=== PATIENT | male | born 1935 | race Caucasian/White ===

== ENCOUNTER → 2017-03-06 13:21 | Outpatient (CLI) | payer MEDICARE, OTHER | END | disposition home or self-care (01) | LOC: D.RT 13:00 | DX: J84.10 Pulmonary fibrosis, unspecified (principal) ==

== ENCOUNTER → 2019-04-04 11:21 | Outpatient (CLI) | payer MEDICARE, OTHER ==
[~2019-04-04 11:21] MED LIST: ASPIRIN325 MG PO; BROVANA15 MCG/2 M INH; COREG 3.1253.125 MG PO; FLOMAX0.4 MG PO; LEVAQUIN750 MG PO; MEDROL DOSE PACK4 MG PO; OMNICEF300 MG PO; PLAVIX75 MG PO; PROVENTIL/2.5 MG/3 M INH; REVATIO20 MG PO; ZETIA10 MG PO
[2019-04-07 10:11] VITALS: BMI 31.9
== END | disposition home or self-care (01) ==
LOC: D.RAD 11:21
PROVIDERS: ATTEND Family Medicine
DX: J18.9 Pneumonia, unspecified organism (principal)

== ENCOUNTER 2019-04-05 09:01 | Inpatient (IN) | payer MEDICARE, OTHER ==
[~2019-04-05] VITALS: Ht 172.7 cm; Wt 102.5 kg
--- NOTE | 2019-04-05 09:46 | NUR ---
PATIENT HAS JUST ARRIVED TO THE FLOOR VIA WHEEL CHAIR. HE IS HERE WITH A FAMILY FRIEND. HE WAS A DIRECT ADMIT FROM DR LOPEZ OFFICE. HE HAS A HISTORY OF FARMERS DISEASE, COPD. HE IS ON 6 LITERS O2 AND HE IS ALERT AND ORIENTED.
[2019-04-05 10:29] LABS: BASOPHILS 0.4 % (0-2); EOSINOPHILS 9.4 % (0-7); HEMATOCRIT 33.6 % (42.0-54.0); IMMATURE GRANULOCYTES 0.4 % (0-5); MCH 30.3 pg (26.0-34.0); MCHC 32.7 g/dL (31.0-37.0); MCV 92.6 fL (80.0-100.0); MEAN PLATELET VOLUME 9.8 fL (7.4-10.4); MONOCYTES 4.8 % (2-11); PLATELET COUNT 145 10x3/uL (130-400); RBC 3.63 10x6/uL (4.20-6.10); RDW 14.2 % (11.5-14.5); WBC 4.8 10x3/uL (4.8-10.8)
[2019-04-05 10:56] VITALS: BP 91/44; BMI 32.0
[2019-04-05 11:06] LABS: ALBUMIN 2.8 g/dL (3.4-5.0); ANION GAP 12.4 mmol/L (8-16); BILIRUBIN - TOTAL 0.37 mg/dL (0.2-1.3); CALCIUM 8.3 mg/dL (8.5-10.1); CARBON DIOXIDE 26.3 mmol/L (21.0-32.0); CREATININE - SERUM 1.7 mg/dL (0.6-1.3); POTASSIUM - SERUM 4.7 mmol/L (3.5-5.1)
--- NOTE | 2019-04-05 11:48 | NUR ---
NEW IV STARTED IN LEFT HAND. 22G ONE STICK. PATIENT TOLERATED.
[2019-04-05 12:30] VITALS: BP 95/48
[2019-04-05 14:46] VITALS: BMI 31.9
[2019-04-05 16:38] VITALS: BP 114/72
[2019-04-05 17:02] LABS: APPEARANCE CLEAR (CLEAR); BILIRUBIN NEGATIVE (NEGATIVE); COLOR YELLOW (YELLOW); GLUCOSE NEGATIVE (NEGATIVE); KETONE NEGATIVE (NEGATIVE); NITRITE NEGATIVE (NEGATIVE); PROTEIN NEGATIVE (NEGATIVE); SPECIFIC GRAVITY 1.015 (1.005-1.020); UROBILINOGEN NORMAL (NORMAL)
[2019-04-05] MEDS ORDERED: ZETIA10 MG PO (17:03)
[2019-04-05] MEDS ORDERED: FLOMAX0.4 MG PO (17:04)
[2019-04-05] MEDS ORDERED: ASPIRIN325 MG PO (17:04)
[2019-04-05] MEDS ORDERED: REVATIO20 MG PO (17:05)
[2019-04-05] MEDS ORDERED: COREG 3.1253.125 MG PO (17:06)
[2019-04-05] MEDS ORDERED: PLAVIX75 MG PO (17:06)
[2019-04-05] MEDS ORDERED: PROVENTIL/2.5 MG/3 M INH (17:07)
--- NOTE | 2019-04-05 19:30 | NUR ---
EVENING ROUNDS MADE. PT BREATHING LABORED AND IRREGULAR, PT NOTED TO HAVE TRILOGY OFF. PT O2 SAT 70%. ASSISTED PT TO PUT TRILOGY BACK ON. 02 SAT IMMEDIATELY JAY TO 90% WHICH PT STATES IS HIS NORMAL AT HOME. PT ANXIOUS ABOUT HIS SETTING ON HIS TRILOGY MACHINE. ASSURED PT THAT THE SETTINGS ARE THE SAME HIS HOME SETTINGS. REASSURED PT THAT HE HAS O2 VIA NC BESIDE HIM AT ALL TIMES IF NEEDED. NO FURTHER CONCERNS AT THIS TIME. PT HAS OWN PULSE OX AT BEDSIDE. BED LOWERED AND LOCKED. CL IN REACH. WILL CTM.
[2019-04-05 20:00] VITALS: BP 112/73
--- NOTE | 2019-04-05 20:51 | NUR ---
VITALS STABLE. PT TOOK MEDS WITHOUT DIFFICULTY. DENIES PAIN AT THIS TIME. ASSISTED WITH APPLYING TRILOGY. NO FURTHER CONCERNS AT THIS TIME. BED LOWERED AND LOCK. CL IN REACH. WILL CTM.
[2019-04-06] VITALS: BP 114/63
[2019-04-06 04:00] VITALS: BP 100/45
--- NOTE | 2019-04-06 04:37 | NUR ---
I have reviewed this patient and I concur with the Shift Assessment completed by the Licensed Practical Nurse today this shift.
[2019-04-06 08:34] VITALS: BP 117/63
--- NOTE | 2019-04-06 08:38 | NUR ---
PATIENT IS SITTING UP IN BED, AT BEDSIDE. HE IS EATTING BREAKFAST AND DENIES ANY NEEDS AT THIS TIME.
[2019-04-06 12:59] VITALS: BP 108/60
[2019-04-06 13:24] LABS: BASOPHILS 0.2 % (0-2); EOSINOPHILS 5.3 % (0-7); HEMATOCRIT 32.2 % (42.0-54.0); HEMOGLOBIN 10.4 g/dL (13.5-17.5); IMMATURE GRANULOCYTES 0.5 % (0-5); LYMPHOCYTES 7.7 % (15-50); MCH 30.1 pg (26.0-34.0); MCHC 32.3 g/dL (31.0-37.0); MCV 93.1 fL (80.0-100.0); MEAN PLATELET VOLUME 9.6 fL (7.4-10.4); MONOCYTES 6.7 % (2-11); NEUTROPHILS 79.6 % (40-80); PLATELET COUNT 135 10x3/uL (130-400); RBC 3.46 10x6/uL (4.20-6.10); RDW 14.3 % (11.5-14.5); WBC 4.2 10x3/uL (4.8-10.8)
[2019-04-06 13:50] LABS: ALBUMIN 2.6 g/dL (3.4-5.0); ANION GAP 13.3 mmol/L (8-16); BILIRUBIN - TOTAL 0.38 mg/dL (0.2-1.3); CALCIUM 7.5 mg/dL (8.5-10.1); CREATININE - SERUM 1.9 mg/dL (0.6-1.3); POTASSIUM - SERUM 4.3 mmol/L (3.5-5.1)
[2019-04-06 17:53] VITALS: BP 116/64
[2019-04-06 20:00] VITALS: BP 135/69
--- NOTE | 2019-04-06 20:13 | NUR ---
RECEIVED REPORT, WILL ASSUME CARE OF PT, DENIES ANY NEEDS, BED IS LOW, SRX2, CALL LIGHT IN REACH, WILL CONTINUE PLAN OF CARE
[2019-04-07] VITALS: BP 104/51
[2019-04-07 04:00] VITALS: BP 106/55
--- NOTE | 2019-04-07 04:59 | NUR ---
I have reviewed this patient and I concur with the Shift Assessment completed by the Licensed Practical Nurse today this shift.
[2019-04-07 06:11] LABS: BASOPHILS 0.3 % (0-2); EOSINOPHILS 0 % (0-7); HEMATOCRIT 35.2 % (42.0-54.0); HEMOGLOBIN 11.4 g/dL (13.5-17.5); IMMATURE GRANULOCYTES 0.3 % (0-5); LYMPHOCYTES 8.5 % (15-50); MCH 29.8 pg (26.0-34.0); MCHC 32.4 g/dL (31.0-37.0); MCV 92.1 fL (80.0-100.0); MEAN PLATELET VOLUME 9.7 fL (7.4-10.4); MONOCYTES 2.2 % (2-11); NEUTROPHILS 88.7 % (40-80); PLATELET COUNT 132 10x3/uL (130-400); RBC 3.82 10x6/uL (4.20-6.10); RDW 14.1 % (11.5-14.5); WBC 3.2 10x3/uL (4.8-10.8)
[2019-04-07 06:29] LABS: ALBUMIN 2.6 g/dL (3.4-5.0); ANION GAP 13.2 mmol/L (8-16); BILIRUBIN - TOTAL 0.33 mg/dL (0.2-1.3); CARBON DIOXIDE 24.6 mmol/L (21.0-32.0); CREATININE - SERUM 1.5 mg/dL (0.6-1.3); POTASSIUM - SERUM 4.8 mmol/L (3.5-5.1); PROTEIN - SERUM 6.8 g/dL (6.4-8.2)
--- NOTE | 2019-04-07 07:34 | NUR ---
INITIAL ROUNDING ON THE PATIENT, HE IS AWAKE AND TALKING ON THE PHONE. WHITE BOARD UPDATED, CALL LIGHT IN REACH.
[2019-04-07 08:30] VITALS: BP 110/56
[2019-04-07 10:11] VITALS: Ht 172.7 cm; Wt 102.5 kg
--- NOTE | 2019-04-07 10:58 | NUR ---
THE PATIENT AND THE SPOUSE ARE CONCERNED ABOUT THE PATIENT NOT GETTING HIS HOME MEDICATIONS SINCE HIS LAST DOSE MONDAY AM BEFORE ARRIVAL HERE. THE MED LIST IS CURRENT AND READY FOR REVIEW
[2019-04-07 11:42] VITALS: BP 99/51
--- NOTE | 2019-04-07 14:15 | NUR ---
ALERT AND ORIENTED X4. SITTING UP IN BED TALKING ON PHONE. 20G NEEDED FOR CT. SITE 20G IV LT FA SUCCESSFUL X1 ATTEMPT.
--- NOTE | 2019-04-07 14:15 | NUR ---
A SECOND IV STARTED IN THE LEFT FOREARM, 20 G, [address] SCAN THAT WAS ORDERED STAT
[2019-04-07 18:49] VITALS: BP 132/75; BP 150/71
--- NOTE | 2019-04-07 19:38 | NUR ---
RECEIVED RE[PORT, WILL ASSUME CARE OF PT, PT TALKING ON PHONE, DENIES ANY NEEDS AT THIS TIME, BED IS LOW, SRX2, CALL LIGHT IN REACH, WILL CONTINUE PLAN OF CARE
[2019-04-07 20:00] VITALS: BP 135/61
[2019-04-08 00:18] VITALS: BP 109/54
[2019-04-08 04:00] VITALS: BP 124/65
--- NOTE | 2019-04-08 04:35 | NUR ---
I have reviewed this patient and I concur with the Shift Assessment completed by the Licensed Practical Nurse today this shift.
--- NOTE | 2019-04-08 04:36 | NUR ---
I have reviewed this patient and I concur with the Shift Assessment completed by the Licensed Practical Nurse today this shift.
[2019-04-08 05:32] LABS: BASOPHILS 0 % (0-2); EOSINOPHILS 0 % (0-7); HEMATOCRIT 30.8 % (42.0-54.0); HEMOGLOBIN 10.2 g/dL (13.5-17.5); IMMATURE GRANULOCYTES 0.1 % (0-5); LYMPHOCYTES 5.3 % (15-50); MCHC 33.1 g/dL (31.0-37.0); MCV 90.6 fL (80.0-100.0); MEAN PLATELET VOLUME 9.8 fL (7.4-10.4); MONOCYTES 4.8 % (2-11); NEUTROPHILS 89.8 % (40-80); RDW 14.1 % (11.5-14.5)
[2019-04-08 05:43] LABS: PLATELET COUNT 159 10x3/uL (130-400); WBC 8.5 10x3/uL (4.8-10.8)
[2019-04-08 06:06] LABS: ALBUMIN 2.5 g/dL (3.4-5.0); ANION GAP 12.4 mmol/L (8-16); BILIRUBIN - TOTAL 0.29 mg/dL (0.2-1.3); CALCIUM 7.9 mg/dL (8.5-10.1); CARBON DIOXIDE 24.9 mmol/L (21.0-32.0); CREATININE - SERUM 1.5 mg/dL (0.6-1.3); MAGNESIUM - SERUM 2.2 mg/dL (1.8-2.4); PHOSPHOROUS 3.1 mg/dL (2.5-4.9); POTASSIUM - SERUM 4.3 mmol/L (3.5-5.1); PROTEIN - SERUM 6.3 g/dL (6.4-8.2)
--- NOTE | 2019-04-08 07:51 | NUR ---
REPORT RECEIVED. WILL CONTINUE WITH POC. PT CURRENTLY LYING SEMI FOWLERS. CALL LIGHT W/I REACH. PT IS AAO AND UP WITH ASSIST. RR EVEN AND UNLABORED ON 8L HIGH FLOW NC. L.FOR PIV HAS NS INFUSING @75ML/HR. NO S/S OF DISTRESS NOTED. PT DENIES ANY NEEDS. WILL CTM.
[2019-04-08 08:28] VITALS: BP 127/61
[2019-04-08 12:58] VITALS: BP 111/60
--- NOTE | 2019-04-08 13:47 | NUR ---
Nutrition follow-up: Diet: Low sodium PO intake ~60% average of last 3 meals Labs reviewed Wt: 212# Will continue to provide food choices and honor food preferences. RDN following.
--- NOTE | 2019-04-08 15:51 | NUR ---
I have reviewed this patient and I concur with the Shift Assessment completed by the Licensed Practical Nurse today this shift.
[2019-04-08 17:28] VITALS: BP 108/54
[2019-04-08 17:39] LABS: BASOPHILS 0.1 % (0-2); EOSINOPHILS 0 % (0-7); HEMATOCRIT 34.4 % (42.0-54.0); HEMOGLOBIN 11.3 g/dL (13.5-17.5); IMMATURE GRANULOCYTES 0.7 % (0-5); LYMPHOCYTES 3.3 % (15-50); MCH 30.3 pg (26.0-34.0); MCHC 32.8 g/dL (31.0-37.0); MCV 92.2 fL (80.0-100.0); MEAN PLATELET VOLUME 9.5 fL (7.4-10.4); MONOCYTES 2.9 % (2-11); RBC 3.73 10x6/uL (4.20-6.10); RDW 14.2 % (11.5-14.5)
[2019-04-08 17:43] LABS: INR 1.2 (0.85-1.17); PLATELET COUNT 194 10x3/uL (130-400); PROTIME 14.7 SECONDS (11.6-15.0)
[2019-04-08 17:52] LABS: ANION GAP 15.1 mmol/L (8-16); BILIRUBIN - TOTAL 0.3 mg/dL (0.2-1.3); CARBON DIOXIDE 24.8 mmol/L (21.0-32.0); CREATININE - SERUM 1.7 mg/dL (0.6-1.3); POTASSIUM - SERUM 3.9 mmol/L (3.5-5.1); PROTEIN - SERUM 7.4 g/dL (6.4-8.2)
--- NOTE | 2019-04-08 19:45 | NUR ---
EVENING ROUNDS COMPLETED. VSS, AAOX4, NO S/S OF DISTRESS. TRILOGY AT BEDSIDE. PT CURRENTLY ON 6L O2 HIGHFLOW. BULDGING FROM ANEURISM NOTED ON MID-STERNAL AREA. PT DENIES PAIN, PT PRESS ON IT OCCASIONALLY WHEN HE COUGHS. EDUCATE PT NOT TO PRESS ON IT TO HARD. PT STATES "I HAVE HAD THIS FOR OVER 15YEARS, I KNOW WHAT I'M DOING." EDUCATE PT ON NEED TO DRINK HIS MAG-CITRATE MED. PT VOICED UNDERSTANDING. PT DENIES ANY FURTHER NEEDS AT THIS TIME. WILL CTM.
[2019-04-08 20:43] VITALS: BP 162/82
--- NOTE | 2019-04-08 22:45 | NUR ---
PT HAD A WELL FORMED BM. ASSIST PT BACK IN BED. RT PLACED PT ON TRILOGY. O2SATB 92. WILL CTM. CL WITHIN REACH.
[2019-04-09] VITALS (18 sets, daily range): BP systolic 108–149; BP diastolic 45–73
[2019-04-09 05:11] LABS: BASOPHILS 0 % (0-2); EOSINOPHILS 0 % (0-7); HEMOGLOBIN 9.8 g/dL (13.5-17.5); IMMATURE GRANULOCYTES 0.4 % (0-5); LYMPHOCYTES 4.9 % (15-50); MCH 30.1 pg (26.0-34.0); MCHC 32.7 g/dL (31.0-37.0); MEAN PLATELET VOLUME 9.6 fL (7.4-10.4); MONOCYTES 5.7 % (2-11); PLATELET COUNT 200 10x3/uL (130-400); RBC 3.26 10x6/uL (4.20-6.10); RDW 14.4 % (11.5-14.5); WBC 9.6 10x3/uL (4.8-10.8)
[2019-04-09 05:25] LABS: APPEARANCE CLEAR (CLEAR); BILIRUBIN NEGATIVE (NEGATIVE); COLOR YELLOW (YELLOW); GLUCOSE NEGATIVE (NEGATIVE); KETONE NEGATIVE (NEGATIVE); NITRITE NEGATIVE (NEGATIVE); PROTEIN NEGATIVE (NEGATIVE); SPECIFIC GRAVITY 1.015 (1.005-1.020); UROBILINOGEN NORMAL (NORMAL)
[2019-04-09 05:30] LABS: ALBUMIN 2.5 g/dL (3.4-5.0); ANION GAP 11.3 mmol/L (8-16); BILIRUBIN - TOTAL 0.24 mg/dL (0.2-1.3); CALCIUM 7.9 mg/dL (8.5-10.1); CARBON DIOXIDE 27.1 mmol/L (21.0-32.0); CREATININE - SERUM 1.4 mg/dL (0.6-1.3); MAGNESIUM - SERUM 2.5 mg/dL (1.8-2.4); PHOSPHOROUS 2.8 mg/dL (2.5-4.9); POTASSIUM - SERUM 4.4 mmol/L (3.5-5.1)
--- NOTE | 2019-04-09 08:30 | NUR ---
PT PRE-OPED AND LEFT FLOOR VIA STRECHER WITH SURGERY. PT ALERT AND ORIENTED. VITALS STABLE. NO S/S OF DISTRESS AT THIS TIME. WILL CONTINUE TOP MONITOR.
--- NOTE | 2019-04-09 15:17 | NUR ---
PT ARRIVED IN THE UNIT. PT DROWSEY FROM ANESTESIA. PT HOOKED TO ICU MONITORS. BRADYCARDIA WITH PAC'S NOTED WITH STABLE BP. BRADYCARDIA BASELINE. VSS AT THIS TIME. O2 PLACED ON AT 15L VIA OXIMIZER PER RT. RIGHT IJ CVL NOTED. SEE IV FLOW SHEET. OLD MIDLINE SURGRICAL SCAR NOTED AND AT UPPER MID ABD, A HERNIA PROTRUDING WHENEVER HE COUGHS IS NOTED. PT DENIES PAIN AT THIS TIME. RIGHT RADIAL RENE NOTED WITH THE WRIST PROTECTOR. CAP REFILL <3 SECONDS. LEFT WRIST IV NOTED. FC NOTED WITH CLEAR, YELLOW URINE. SMALL DRESSINGS NOTED TO BILATERAL GROIN. SOFT TO PALPATATION WITH NO BRUISING NOTED. BILATEARL DP AND PT PULSES DOPPERABLE. WILL CONT 1:1 CARE UNTIL PT IS LESS CONFUSED.
--- NOTE | 2019-04-09 16:03 | NUR ---
PULSES REMAINED DOOPLERABLE. BILATERAL GROIN SITES REMAIN SOFT TO PALPATATION AND NO HEMATOMA.
--- NOTE | 2019-04-09 16:03 | NUR ---
PT BECOMING MORE AWAKE AND VERY VERY CONVERSANT. PT CONFUSED BUT CALM AND COOPERATIVE. VSS WILL CONT POC.
--- NOTE | 2019-04-09 17:14 | NUR ---
DR NUGENT CALLED AND UPDATED ABOUT VITALS AND THAT THE PTS BRADYCARDIC. NO N.O AT THIS TIME.
--- NOTE | 2019-04-09 19:00 | NUR ---
PT ALERT AND ORIENTED X4, BRIEF MOMENTS OF CONFUSION PRESENT- EASILY REORIENTED. PUPILS 3MM, EQUAL AND REACTIVE. LUNG SOUNDS CRACKLES/DIMINISHED, COUGH PRESENT. 11L O2 VIA HIGH FLOW NC, SPO2 98. S1S2 HEARD, BRADYCARDIC ON MONITOR. PERIPHERAL PULSES PRESENT. BILATERAL GROIN INCISION SITES WITH DRSG CDI, SOFT, NO S/S OF HEMATOMA. RT RADIAL RENE WITH GOOD WAVEFORM. RT IJ WITH DRSG CDI. PT REPOSITIONED FOR COMFORT, PARTIAL LINEN CHANGE PROVIDED. DENIES PAIN AT THIS TIME. CALL LIGHT WITHIN PT REACH, ROOM VISIBLE FROM NURSES STATION. CPOC.
--- NOTE | 2019-04-09 21:00 | NUR ---
HS MEDS GIVEN, TOLERATED WELL. FRESH WATER PROVIDED. ATE 100% OF HS SNACK. REPOSITIONED FOR COMFORT. VSS, DENIES PAIN AT THIS TIME. DENIES FURTHER NEEDS. COUGH/DB WITH GOOD EFFORT. REACHING 750 ON I/S. CALL LIGHT AND BEDSIDE TABLE WITHIN PT REACH. CPOC.
--- NOTE | 2019-04-09 23:00 | NUR ---
REASSESSMENT COMPLETE, SEE FLOWSHEET FOR ALL CHANGES. PT RESTING COMFORTABLY AT THIS TIME WITH NO C/O PAIN. HOME TRILOGY MACHINE ON, SPO2 99. PERIPHERAL PULSES PRESENT, BILATERAL GROINS SOFT WITH NO S/S OF HEMATOMA. DENIES NEEDS AT THIS TIME. CALL LIGHT AND BEDSIDE TABLE WITHIN PT REACH. CPOC.
[2019-04-10] VITALS (28 sets, daily range): BP systolic 90–134; BP diastolic 45–68
--- NOTE | 2019-04-10 01:00 | NUR ---
PT RESTING IN BED, DENIES PAIN, NO CHANGE IN CONDITION, VITALS STABLE. CALL LIGHT IN REACH, WILL CONTINUE TO MONITOR
--- NOTE | 2019-04-10 03:00 | NUR ---
REASSESSMENT COMPLETED, SEE FLOWSHEET. VITALS STABLE, PT DENIES PAIN, NO FURTHER NEEDS VOICED AT THIS TIME. CALL LIGHT IN REACH, WILL CONTINUE TO MONITOR
--- NOTE | 2019-04-10 05:33 | NUR ---
CVL DRESSING CHANGED PER PROTOCOL. CHG BATH AND COMPLETE LINEN CHANGE PROVIDED. ORAL CARE PROVIDED. UP TO CHAIR X2 RN ASSIST. VSS, DENIES FURTHER NEEDS AT THIS TIME. CALL LIGHT AND BEDSIDE TABLE WITHIN PT REACH. CPOC.
[2019-04-10 06:23] LABS: BASOPHILS 0 % (0-2); EOSINOPHILS 0 % (0-7); HEMATOCRIT 30.7 % (42.0-54.0); HEMOGLOBIN 9.8 g/dL (13.5-17.5); IMMATURE GRANULOCYTES 1.1 % (0-5); LYMPHOCYTES 4.9 % (15-50); MCHC 31.9 g/dL (31.0-37.0); MCV 93.9 fL (80.0-100.0); MEAN PLATELET VOLUME 9.1 fL (7.4-10.4); MONOCYTES 3.3 % (2-11); NEUTROPHILS 90.7 % (40-80); PLATELET COUNT 187 10x3/uL (130-400); RBC 3.27 10x6/uL (4.20-6.10); RDW 14.5 % (11.5-14.5); WBC 7.5 10x3/uL (4.8-10.8)
[2019-04-10 06:42] LABS: ALBUMIN 2.4 g/dL (3.4-5.0); ANION GAP 12.2 mmol/L (8-16); BILIRUBIN - TOTAL 0.37 mg/dL (0.2-1.3); CALCIUM 7.4 mg/dL (8.5-10.1); CARBON DIOXIDE 26.7 mmol/L (21.0-32.0); CREATININE - SERUM 1.4 mg/dL (0.6-1.3); MAGNESIUM - SERUM 2.8 mg/dL (1.8-2.4); POTASSIUM - SERUM 4.9 mmol/L (3.5-5.1); PROTEIN - SERUM 5.9 g/dL (6.4-8.2)
--- NOTE | 2019-04-10 07:39 | NUR ---
pt up in chair. breakfast tray served and pt eating after asst with meal tray set up.
--- NOTE | 2019-04-10 10:56 | NUR ---
DCD PIV L WRIST AND DCD ART LINE R WRIST. DR NUGENT HERE ON ROUNDS. DR NUGENT SPOKE TO PT AND AT . DR AGUIRRE ROUNDS THIS AM.
--- NOTE | 2019-04-10 11:54 | MORECARE ---
CASE MANAGEMENT DISCHARGE SUMMARY PATIENT: EVI VINSON [place] UNIT: [id number] ADM DATE: 04/05/19 AGE: 83 : 35 SEX: M [facility] AUTHOR: TENISHA DONOHUE PHYSICIAN: REFERRING PHYSICIAN: JESSICA PRUITT DO DATE OF SERVICE: 04/10/19 Discharge Plan Patient Name: EVI VINSON [facility] : 1935 Planned Disposition: Home with Home Health Anticipated Discharge Date: Discharge Date: Expected LOS: Initial Reviewer: [email or web address] Initial Review Date: 04/05/2019 Generated: 04/10/19 12:54 pm DCPIA - Discharge Planning Initial Assessment Updated by [email or web address]: Crystal Sharma on 04/10/19 11:53 am * Is the patient Alert and Oriented? Yes * How many steps to enter\exit or inside your home? * PCP SONAL * Pharmacy [facility] * Preadmission Environment Home with Family * ADLs Independent * Other Equipment LIQUID 02 AND TRILOGY * List name and contact numbers for known caregivers / representatives who currently or will assist patient after discharge: ERIN VINSON - SPOUSE - [phone] * Verbal permission to speak to the caregivers and representatives has been obtained from the patient. Yes * Community resources currently utilized None * Additional services required to return to the preadmission environment? No * Can the patient safely return to the preadmission environment? Yes * Has this patient been hospitalized within the prior 30 days at any hospital? No Patient Name: EVI VINSON Page [phone] at 1154 All edits/amendments must be made on the electronic document DICTATION DATE: 04/10/19 1154 ELECTRIC METER INSTALLER: PAULINA 04/10/19 1154 RPT#: [id number] DC DATE: STATUS: ADM IN [facility] [address] [place] [address] END OF REPORT
--- NOTE | 2019-04-10 12:02 | MORECARE ---
CASE MANAGEMENT DISCHARGE SUMMARY PATIENT: EVI MARQUEZ [place] UNIT: [id number] ADM DATE: 04/05/19 AGE: 83 : 35 SEX: M [facility] AUTHOR: TENISHA DONOHUE PHYSICIAN: REFERRING PHYSICIAN: JESSICA PRUITT DO DATE OF SERVICE: 04/10/19 Discharge Plan Patient Name: EVI MARQUEZ Facility: [facility]:[place] : 1935 Planned Disposition: Home with Home Health Anticipated Discharge Date: Discharge Date: Expected LOS: Initial Reviewer: [email or web address] Initial Review Date: 04/05/2019 Generated: 04/10/19 1:02 pm Comments DCP- Discharge Planning Updated by [email or web address]: Crystal Sharma on 04/10/19 10:[address] Patient Name: EVI MARQUEZ Admission Status: Elective Accout number: [id number] Admission Date: 04-05-2019 : 1935 Admission Diagnosis: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 Patient lives at home with his Roxana and plans to return there upon discharge. Patient feels this would be a safe discharge. CM discussed availability / needs of home health and medical equipment. is requesting Home Health. CM gave Home Health IRAM and information to choose HH agency. Patient states he will have his drive him home upon discharge. D/C IMM explained and signed @ 1000 CM will continue to follow and assist as needed with discharge planning /needs B2B Sales Professional: Crystal Sharma DCPIA - Discharge Planning Initial Assessment Updated by [email or web address]: Crystal Sharma on 04/10/19 11:53 am * Is the patient Alert and Oriented? Yes * How many steps to enter\exit or inside your home? * PCP SONAL * Pharmacy [facility] * Preadmission Environment Home with Family * ADLs Independent * Other Equipment LIQUID 02 AND TRILOGY * List name and contact numbers for known caregivers / representatives who currently or will assist patient after discharge: ROXANA MARQUEZ - SPOUSE - [phone] * Verbal permission to speak to the caregivers and representatives has been obtained from the patient. Yes * Community resources currently utilized None * Additional services required to return to the preadmission environment? No * Can the patient safely return to the preadmission environment? Yes * Has this patient been hospitalized within the prior 30 days at any hospital? No Coverage Notice Reviewer: [email or web address] Miguel Sharma Notice Issued Date-Time: 04/10/2019 10:00 Notice Type: IM Discharge Notice Notice Delivered To: Family Member Relationship to Patient: Spouse Ex Chef Name: Roxana Marquez Delivery Method: HAND - Hand Delivered Denise Days: Prior Verbal Notification: Recipient Understood Notice: Yes Recipient Signature: Yes Med Rec Note Co-signed by Attending: Coverage Notice Comment: Reviewer: [id number] Miguel Sharma Notice Issued Date-Time: 04/10/2019 10:00 Notice Type: Patient Choice Letter Notice Delivered To: Family Member Relationship to Patient: Spouse Ex Chef Name: Roxana Marquez Delivery Method: HAND - Hand Delivered Denise Days: Prior Verbal Notification: Recipient Understood Notice: Yes Recipient Signature: Yes Med Rec Note Co-signed by Attending: Coverage Notice Comment: IRAM for Home Health Last DP export: 04/10/19 10:54 a Patient Name: EVI MARQUEZ Page [phone] at 1202 All edits/amendments must be made on the electronic document DICTATION DATE: 04/10/19 1201 BUSINESS TRAINER: PAULINA 04/10/19 1201 RPT#: [id number] DC DATE: STATUS: ADM IN [facility] [address] [place] [address] END OF REPORT
--- NOTE | 2019-04-10 12:19 | NUR ---
Nutrition Follow-up: Pt reports tolerating PO intake and eating ~50% this AM (solids). Requests strawberry Ensure with meals. Wt: 212# Last BM: 04/10 Labs noted: Glu 147, Alb 2.4, Mg 2.8 Meds noted: Senokot, Colace, Solumedrol Rec continue cardiac diet. +Ensure with meals per pt's request. Will provide food choices with selective menus and honor food preferences. RD following.
--- NOTE | 2019-04-10 12:20 | OP ---
PATIENT NAME: EVI VINSON MEDICAL RECORD: [id number] :[birth year] LOCATION:[id number] ADMISSION DATE:04/05/19 SURGEON: EDMOND NUGENT MD DATE OF OPERATION: 04/09/2019 SURGEON: Edmond Nugent MD GUEST SPECIALIST: Jamie Noel MD OPERATION PERFORMED: Percutaneous endovascular repair, abdominal aortic aneurysm. PREOPERATIVE DIAGNOSIS: Abdominal aortic aneurysm. POSTOPERATIVE DIAGNOSIS: Abdominal aortic aneurysm. ANESTHESIA: General endotracheal anesthesia. ESTIMATED BLOOD LOSS: 100 cc. COMPLICATIONS: None. SPECIMENS: None. CONDITION: Stable. DISPOSITION: CV ICU. OPERATIVE FINDINGS: 1. Deployment of bifurcated aortic endograft; 120 length, 25 neck, and 40 limbs. 2. Good overlap with a 28 x 95 supra extension. 3. Aortic angioplasty. 4. Right iliac angiogram. INDICATION: Greater than 7-cm abdominal aortic aneurysm in a patient with severe respiratory failure. PROCEDURE NOTE IN DETAIL: The patient was brought to the operating suite. General anesthesia was obtained. The patient was prepped and draped. Both femoral arteries were accessed with ultrasound guidance. On the right, a 6-German sheath was placed; on the left, 7-German sheath, both using micropuncture technique. On the right, 2 ProGlides were predeployed and then heparin was given. A 7-German sheath was placed on the right. On the left, the snare catheter and snare were placed. On the right, exchange catheter was used to place a stiff wire. The AFX introducer system was placed on the right and then the main body was placed. The contralateral wire was grasped and pulled on the left. Main body was deployed. The left limb was deployed. The guidewire was removed using the pigtail and the pigtail was placed in position for the angiogram. Then, on the right, the inner core was pulled back. The right limb was deployed. Inner core was mated with the sheath and it was placed up above the renal arteries. The suprarenal extension was brought into place and an angiogram was performed to locate the anatomy of the renal arteries. Then, the suprarenal device was deployed. A separate aortogram was performed, confirming deployment, and the final deployment was performed. Then, the Reliant balloon OPERATIVE REPORT [id number] EVI VINSON was used for aortic angioplasty and right iliac angioplasty after first reforming the pigtail catheter and placing it back within the aorta, not between the sections of the graft. Then, the pigtail was pulled back. The ProGlides were deployed on the right and an angiogram revealed no obstruction of the vessel on the left side. An Angio-Seal was used. There were Doppler pedal pulses on return to the ICU. 1. Placement of bifurcated endograft. 2. Placement of suprarenal extension. 3. Aortic angioplasty. 4. Right iliac angioplasty. 5. Aortogram times 3. 6. Iliac angiogram. TRANSINT:[id number] Voice Confirmation ID: [id number] DOCUMENT ID: [id number] EDMOND NUGENT MD at 1220 CC: NGOZI WHARTON MD, JESSICA PRUITT DO and MARIAN TO [id number] DICTATION DATE: 04/09/19 1502 DOCK SUPERINTENDENT: 04/09/19 1530 ADM IN [facility] [address] [place] [id number]
--- NOTE | 2019-04-10 12:30 | NUR ---
DR LONG HERE ON ROUNDS.
--- NOTE | 2019-04-10 15:05 | NUR ---
PT RESTING COMFORTABLY IN CHAIR.
--- NOTE | 2019-04-10 17:49 | NUR ---
MEAL TRAY GIVEN AND PT FEEDS SELF WITH OUT DIFFICULTY. AT BS.
--- NOTE | 2019-04-10 18:16 | NUR ---
ASSISTED TO BSC AND PT HAD SM BM. ASSISTED BACK TO BED. PT EXPERIENCES COUGHING AND PRODUCTIVE COUGH. SM AMT CL SPUTUM.
--- NOTE | 2019-04-10 19:00 | NUR ---
PT AOX4, PUPILS EQUAL AND REACITVE. MOVES EXTREMITIES X4 AGAINST GRAVITY. LUNG SOUNDS CRACKLES/DIMINISHED. 10L O2 VIA HIGH FLOW NC, SPO2 97. FREQUENT COUGH PRESENT. I/S COMPLETED REACHING 750 X10. S1S2 HEARD, PERIPHERAL PULSES PRESENT. BILATERAL GROIN WITH DRSG CDI, SOFT TO PALPATION. PT REPOSITIONED FOR COMFORT, PARTIAL LINEN CHANGE PROVIDED. VSS, DENIES PAIN AT THIS TIME. CALL LIGHT AND BEDSIDE TABLE WITHIN PT REACH. CPOC.
--- NOTE | 2019-04-10 20:03 | NUR ---
FRESH WATER PROVIDED. HS MEDS GIVEN, TOLERATED WELL. I/S COMPLETED REACHING UP TO 1000 X10. PT REPOSITIONED FOR COMFORT. VSS, NO COMPLAINTS OF PAIN AT THIS TIME. DENIES NEEDS. CALL LIGHT AND BEDSIDE TABLE WITHIN PT REACH. CPOC.
--- NOTE | 2019-04-10 21:10 | NUR ---
HOME TRILOGY MACHINE PLACED ON PT AT THIS TIME, SPO2 98. PT REPOSITIONED FOR COMFORT, DENIES PAIN. VSS, PT RESTING COMFORTABLY. CALL LIGHT AND BEDSIDE TABLE WITHIN PT REACH. CPOC.
--- NOTE | 2019-04-10 22:00 | NUR ---
NO VISITORS DURING VISITATION.
--- NOTE | 2019-04-10 23:00 | NUR ---
REASSESSMENT COMPLETE, NO NEW CHANGES AT THIS TIME. PT REPOSITIONED WITH PROMINENCES BRIDGED. VSS, DENIES PAIN AT THIS TIME. TRILOGY IN PLACE, SPO2 97. DENIES NEEDS. CALL LIGHT AND BEDSIDE TABLE WITHIN PT REACH. CPOC.
[2019-04-11] VITALS (26 sets, daily range): BP systolic 97–139; BP diastolic 47–98
--- NOTE | 2019-04-11 01:40 | NUR ---
FRESH WATER PROVIDED, I/S COMPLETED REACHING 750 X10. DENIES PAIN. PT REPOSITIONED WITH PROMINENCES BRIDGED. TRILOGY PLACED BACK ON PT. PT RESTING COMFORTABLY. CALL LIGHT WITHIN PT REACH. CPOC.
--- NOTE | 2019-04-11 05:30 | NUR ---
CHG BATH AND COMPLETE LINEN CHANGE PROVIDED. UP TO CHAIR, TOLERATED WELL. ORAL CARE PROVIDED. DENIES PAIN. DENIES FURTHER NEEDS AT THIS TIME. CALL LIGHT AND BEDSIDE TABLE WITHIN PT REACH. CPOC.
[2019-04-11 05:57] LABS: BASOPHILS 0 % (0-2); EOSINOPHILS 0 % (0-7); HEMATOCRIT 31.1 % (42.0-54.0); HEMOGLOBIN 10.1 g/dL (13.5-17.5); IMMATURE GRANULOCYTES 1.9 % (0-5); LYMPHOCYTES 4.8 % (15-50); MCH 30.2 pg (26.0-34.0); MCHC 32.5 g/dL (31.0-37.0); MCV 93.1 fL (80.0-100.0); MEAN PLATELET VOLUME 9.2 fL (7.4-10.4); MONOCYTES 5.6 % (2-11); NEUTROPHILS 87.7 % (40-80); PLATELET COUNT 221 10x3/uL (130-400); RBC 3.34 10x6/uL (4.20-6.10); RDW 14.6 % (11.5-14.5)
[2019-04-11 06:25] LABS: WBC 9.6 10x3/uL (4.8-10.8)
[2019-04-11 06:53] LABS: ALBUMIN 2.5 g/dL (3.4-5.0); ANION GAP 11.1 mmol/L (8-16); BILIRUBIN - TOTAL 0.35 mg/dL (0.2-1.3); CALCIUM 7.8 mg/dL (8.5-10.1); CARBON DIOXIDE 28.7 mmol/L (21.0-32.0); CREATININE - SERUM 1.5 mg/dL (0.6-1.3); MAGNESIUM - SERUM 2.9 mg/dL (1.8-2.4); PHOSPHOROUS 3.6 mg/dL (2.5-4.9); POTASSIUM - SERUM 4.8 mmol/L (3.5-5.1); PROTEIN - SERUM 5.9 g/dL (6.4-8.2)
--- NOTE | 2019-04-11 09:35 | NUR ---
0700 PT RECIEVED UP IN CHAIR ALERT AND ORIENTED O2 11L, R IJ CVL DRESSING CDI, SL, FLOR DRAINING YELLOW URINE 0900 TOOK AM MEDS AND ATE BREAKFAST WITHOUT DIFFICULTY
--- NOTE | 2019-04-11 16:40 | NUR ---
1100 REPOSITIONED IN CHAIR 1300 ATE 75% LUNC 1500 ASSISTED TO BATHROOM, BM NOTED 1640 DINNER TRAY SERVED
--- NOTE | 2019-04-11 18:16 | NUR ---
4979 PT ASSISTED IN AMBULATING HALLWAY AND ASSISTED TO BED
--- NOTE | 2019-04-11 18:27 | MORECARE ---
CASE MANAGEMENT DISCHARGE SUMMARY PATIENT: EVI MARQUEZ [place] UNIT: [id number] ADM DATE: 04/05/19 AGE: 83 : 35 SEX: M [facility] AUTHOR: TENISHA DONOHUE PHYSICIAN: REFERRING PHYSICIAN: JESSICA PRUITT DO DATE OF SERVICE: 04/11/19 Discharge Plan Patient Name: EVI MARQUEZ Facility: [facility]:[place] : 1935 Planned Disposition: Home with Home Health Anticipated Discharge Date: Discharge Date: Expected LOS: Initial Reviewer: [email or web address] Initial Review Date: 04/05/2019 Generated: 04/11/19 7:26 pm DCP- Discharge Planning Updated by [email or web address]: Crystal Sharma on 04/10/19 10:[address] Patient Name: EVI MARQUEZ Admission Status: Elective Accout number: [id number] Admission Date: 04-05-2019 : 1935 Admission Diagnosis: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 Patient lives at home with his Roxana and plans to return there upon discharge. Patient feels this would be a safe discharge. CM discussed availability / needs of home health and medical equipment. is requesting Home Health. CM gave Home Health IRAM and information to choose HH agency. Patient states he will have his drive him home upon discharge. D/C IMM explained and signed @ 1000 CM will continue to follow and assist as needed with discharge planning /needs Burning Plant Operator: Crystal Sharma DCPIA - Discharge Planning Initial Assessment Updated by [email or web address]: Crystal Sharma on 04/10/19 11:53 am * Is the patient Alert and Oriented? Yes * How many steps to enter\exit or inside your home? * PCP SONAL * Pharmacy [facility] * Preadmission Environment Home with Family * ADLs Independent * Other Equipment LIQUID 02 AND TRILOGY * List name and contact numbers for known caregivers / representatives who currently or will assist patient after discharge: ROXANA MARQUEZ - SPOUSE - [phone] * Verbal permission to speak to the caregivers and representatives has been obtained from the patient. Yes * Community resources currently utilized None * Additional services required to return to the preadmission environment? No * Can the patient safely return to the preadmission environment? Yes * Has this patient been hospitalized within the prior 30 days at any hospital? No External Providers External Provider: [facility] Contact Date: Service Request Date: Service Type: Resolution: Reviewer: Comments: Coverage Notice Reviewer: [id number] Miguel Sharma Notice Issued Date-Time: 04/10/2019 10:00 Notice Type: IM Discharge Notice Notice Delivered To: Family Member Relationship to Patient: Spouse Plant Ecologist Name: Roxana Marquez Delivery Method: HAND - Hand Delivered Denise Days: Prior Verbal Notification: Recipient Understood Notice: Yes Recipient Signature: Yes Med Rec Note Co-signed by Attending: Coverage Notice Comment: Reviewer: [email or web address] Miguel Sharma Notice Issued Date-Time: 04/10/2019 10:00 Notice Type: Patient Choice Letter Notice Delivered To: Family Member Relationship to Patient: Spouse Plant Ecologist Name: Roxana Marquez Delivery Method: HAND - Hand Delivered Denise Days: Prior Verbal Notification: Recipient Understood Notice: Yes Recipient Signature: Yes Med Rec Note Co-signed by Attending: Coverage Notice Comment: [facility] Last DP export: 04/10/19 11:02 a Patient Name: EVI MARQUEZ Page [phone] at 1827 All edits/amendments must be made on the electronic document DICTATION DATE: 04/11/191825 AUDIOVISUAL AIDS TECHNICIAN: PAULINA 04/11/191825 RPT#: [id number] DC DATE: STATUS: ADM IN [facility] [address] [place] [address] END OF REPORT
--- NOTE | 2019-04-11 20:05 | MORECARE ---
CASE MANAGEMENT DISCHARGE SUMMARY PATIENT: EVI MARQUEZ [place] UNIT: [id number] ADM DATE: 04/05/19 AGE: 83 : 35 SEX: M ROOM/BED: D.[facility] AUTHOR: TENISHA DONOHUE PHYSICIAN: REFERRING PHYSICIAN: JESSICA PRUITT DO DATE OF SERVICE: 04/11/19 Discharge Plan Patient Name: EVI MARQUEZ Facility: [facility]:[place] : 1935 Planned Disposition: Home with Home Health Anticipated Discharge Date: Discharge Date: Expected LOS: Initial Reviewer: [email or web address] Initial Review Date: 04/05/2019 Generated: 04/11/19 9:05 pm Comments DCP- Discharge Planning Updated by [id number]: Crystal Sharma on 04/11/19 7:[address] Patient is requesting Home Health upon discharge. IRAM signed for #1 [place] #2 [place]. CM called Molly and faxed records. CM stated uncertain of discharge date could be as early as tomorrow. CM will continue to follow and assist as needed with discharge planning / needs. 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 Patient lives at home with his Roxana and plans to return there upon discharge. Patient feels this would be a safe discharge. CM discussed availability / needs of home health and medical equipment. is requesting Home Health. CM gave Home Health IRAM and information to choose HH agency. Patient states he will have his drive him home upon discharge. D/C IMM explained and signed @ 1000 CM will continue to follow and assist as needed with discharge planning /needs District Sales Coordinator: Crystal Sharma DCPIA - Discharge Planning Initial Assessment Updated by [email or web address]: Crystal Sharma on 04/10/19 11:53 am * Is the patient Alert and Oriented? Yes * How many steps to enter\exit or inside your home? * PCP DASHAWNO * Pharmacy [facility] * Preadmission Environment Home with Family * ADLs Independent * Other Equipment LIQUID 02 AND TRILOGY * List name and contact numbers for known caregivers / representatives who currently or will assist patient after discharge: ROXANA MARQUEZ - SPOUSE - [phone] * Verbal permission to speak to the caregivers and representatives has been obtained from the patient. Yes * Community resources currently utilized None * Additional services required to return to the preadmission environment? No * Can the patient safely return to the preadmission environment? Yes * Has this patient been hospitalized within the prior 30 days at any hospital? No Coverage Notice Reviewer: [id number] Sharma Notice Issued Date-Time: 04/10/2019 10:00 Notice Type: IM Discharge Notice Notice Delivered To: Family Member Relationship to Patient: Spouse Outsole Cementer Machine Name: Roxana Marquez Delivery Method: HAND - Hand Delivered Denise Days: Prior Verbal Notification: Recipient Understood Notice: Yes Recipient Signature: Yes Med Rec Note Co-signed by Attending: Coverage Notice Comment: Reviewer: [id number] Miguel Sharma Notice Issued Date-Time: 04/10/2019 10:00 Notice Type: Patient Choice Letter Notice Delivered To: Family Member Relationship to Patient: Spouse Outsole Cementer Machine Name: Roxana Marquez Delivery Method: HAND - Hand Delivered Denise Days: Prior Verbal Notification: Recipient Understood Notice: Yes Recipient Signature: Yes Med Rec Note Co-signed by Attending: Coverage Notice Comment: [facility] for Home Health Last DP export: 04/11/19 5:27 pm Patient Name: EVI MARQUEZ Page [id number] at 2005 All edits/amendments must be made on the electronic document DICTATION DATE: 04/11/192003 EQUIPMENT OR MACHINERY CLEANER: PAULINA 04/11/192003 RPT#: [id number] DC DATE: STATUS: ADM IN [facility] [address] [place] [address] END OF REPORT
--- NOTE | 2019-04-11 20:12 | MORECARE ---
CASE MANAGEMENT DISCHARGE SUMMARY PATIENT: EVI MARQUEZ [place] UNIT: [id number] ADM DATE: 04/05/19 AGE: 83 : 35 SEX: M ROOM/BED: D.[facility] AUTHOR: TENISHA DONOHUE PHYSICIAN: REFERRING PHYSICIAN: JESSICA PRUITT DO DATE OF SERVICE: 04/11/19 Discharge Plan Patient Name: EVI MARQUEZ Facility: [facility]:[place] : 1935 Planned Disposition: Home with Home Health Anticipated Discharge Date: Discharge Date: Expected LOS: Initial Reviewer: [id number] Initial Review Date: 04/05/2019 Generated: 04/11/19 9:11 pm Comments DCP- Discharge Planning Updated by [id number]: Crystal Sharma on 04/11/19 7:[address] Patient is requesting Home Health upon discharge. IRAM signed for #1 [place] #2 Jessica. CM called Molly and faxed records. CM stated uncertain of discharge date could be as early as tomorrow. CM will continue to follow and assist as needed with discharge planning / needs. 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 Patient lives at home with his Roxana and plans to return there upon discharge. Patient feels this would be a safe discharge. CM discussed availability / needs of home health and medical equipment. is requesting Home Health. CM gave Home Health IRAM and information to choose HH agency. Patient states he will have his drive him home upon discharge. D/C IMM explained and signed @ 1000 CM will continue to follow and assist as needed with discharge planning /needs German Tutor: Crystal Sharma DCPIA - Discharge Planning Initial Assessment Updated by [email or web address]: Crystal Sharma on 04/10/19 11:53 am * Is the patient Alert and Oriented? Yes * How many steps to enter\exit or inside your home? * PCP FARO * Pharmacy [facility] * Preadmission Environment Home with Family * ADLs Independent * Other Equipment LIQUID 02 AND TRILOGY * List name and contact numbers for known caregivers / representatives who currently or will assist patient after discharge: ROXANA MARQUEZ - SPOUSE - [phone] * Verbal permission to speak to the caregivers and representatives has been obtained from the patient. Yes * Community resources currently utilized None * Additional services required to return to the preadmission environment? No * Can the patient safely return to the preadmission environment? Yes * Has this patient been hospitalized within the prior 30 days at any hospital? No Coverage Notice Reviewer: [id number] Sharma Notice Issued Date-Time: 04/10/2019 10:00 Notice Type: IM Discharge Notice Notice Delivered To: Family Member Relationship to Patient: Spouse Group Chief Operator Name: Roxana Marquez Delivery Method: HAND - Hand Delivered Denise Days: Prior Verbal Notification: Recipient Understood Notice: Yes Recipient Signature: Yes Med Rec Note Co-signed by Attending: Coverage Notice Comment: Reviewer: [id number] Miguel Sharma Notice Issued Date-Time: 04/10/2019 10:00 Notice Type: Patient Choice Letter Notice Delivered To: Family Member Relationship to Patient: Spouse Group Chief Operator Name: Roxana Marquez Delivery Method: HAND - Hand Delivered Denise Days: Prior Verbal Notification: Recipient Understood Notice: Yes Recipient Signature: Yes Med Rec Note Co-signed by Attending: Coverage Notice Comment: [facility] for Home Health Last DP export: 04/11/19 5:27 pm Patient Name: EVI MARQUEZ Page [phone] at 2012 All edits/amendments must be made on the electronic document DICTATION DATE: 04/11/192010 TEMPLATE INSPECTOR: PAULINA 04/11/192010 RPT#: [id number] DC DATE: STATUS: ADM IN [facility] [address] [place] [address] END OF REPORT
[2019-04-12] VITALS (12 sets, daily range): BP systolic 113–144; BP diastolic 51–73
--- NOTE | 2019-04-12 05:00 | NUR ---
1900 REPORT RECEIVED CARE ASSUMED ASSESSMENT DONE SEE FLOW SHEET. VSS. 2100 MEDS GIVEN PER MAR. WATER PROVIDED. VSS. 2300 REASSESSMENT DONE SEE FLOW SHEET VSS. 0100 WATER PROVIDED PER PT REQUEST. VSS. 0300 REASSESSMENT DONE SEE FLOW SHEET VSS. 0500 IO COLLECTED DAILY WEIGHT COLLECTED. LABS DRAWN. VSS.
[2019-04-12 06:15] LABS: MAGNESIUM - SERUM 2.6 mg/dL (1.8-2.4); PHOSPHOROUS 2.8 mg/dL (2.5-4.9)
--- NOTE | 2019-04-12 08:45 | NUR ---
AMBULATED WITH NURSE APPROXIMATELY 250FT.
[2019-04-12] MEDS ORDERED: LEVAQUIN750 MG PO (10:51)
[2019-04-12] MEDS ORDERED: MEDROL DOSE PACK4 MG PO (10:54)
[2019-04-12] MEDS ORDERED: BROVANA15 MCG/2 M INH (10:54)
[2019-04-12] MEDS ORDERED: OMNICEF300 MG PO (11:23)
--- NOTE | 2019-04-12 11:56 | MORECARE ---
CASE MANAGEMENT DISCHARGE SUMMARY PATIENT: EVI MARQUEZSHAM UNIT: [id number] ADM DATE: 04/05/19 AGE: 83 : 35 SEX: M [facility] AUTHOR: TENISHA DONOHUE PHYSICIAN: REFERRING PHYSICIAN: JESSICA PRUITT DO DATE OF SERVICE: 04/12/19 Discharge Plan Patient Name: EVI MARQUEZ Facility: [facility]:[place] : 1935 Planned Disposition: Home with Home Health Anticipated Discharge Date: Discharge Date: Expected LOS: Initial Reviewer: [email or web address] Initial Review Date: 04/05/2019 Generated: 04/12/19 12:56 pm Comments DCP- Discharge Planning Updated by [id number]: Crystal Sharma on 04/12/19 10:[address] Patient Name: EVI MARQUEZ Encounter No: [id number] : 1935 Primary Insurance: MEDICARE A & B Anticipated DC Date: Planned Disposition: Home with Home Health External Planned Provider: : [facility] [phone] will see patient tomorrow 04/13/19 DCP follow-up note: Patient and family in agreement with discharge plan. No changes to plan. Case management will follow and assist as needed. Crystal Sharma DCP- Discharge Planning Updated by [email or web address]: Crystal Sharma on 04/11/19 7:[address] Patient is requesting Home Health upon discharge. IRAM signed for #1 [place] #2 [place]. CM called [place] and faxed records. CM stated uncertain of discharge date could be as early as tomorrow. CM will continue to follow and assist as needed with discharge planning / needs. 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 Patient lives at home with his Roxana and plans to return there upon discharge. Patient feels this would be a safe discharge. CM discussed availability / needs of home health and medical equipment. is requesting Home Health. CM gave Home Health IRAM and information to choose HH agency. Patient states he will have his drive him home upon discharge. D/C IMM explained and signed @ 1000 CM will continue to follow and assist as needed with discharge planning /needs Website Project Manager: Crystal Sharma DCPIA - Discharge Planning Initial Assessment Updated by [email or web address]: Crystal Sharma on 04/10/19 11:53 am * Is the patient Alert and Oriented? Yes * How many steps to enter\exit or inside your home? * PCP SONAL * Pharmacy [facility] * Preadmission Environment Home with Family * ADLs Independent * Other Equipment LIQUID 02 AND TRILOGY * List name and contact numbers for known caregivers / representatives who currently or will assist patient after discharge: ROXANA MARQUEZ - SPOUSE - [phone] * Verbal permission to speak to the caregivers and representatives has been obtained from the patient. Yes * Community resources currently utilized None * Additional services required to return to the preadmission environment? No * Can the patient safely return to the preadmission environment? Yes * Has this patient been hospitalized within the prior 30 days at any hospital? No Coverage Notice Reviewer: [id number] Miguel Sharma Notice Issued Date-Time: 04/10/2019 10:00 Notice Type: IM Discharge Notice Notice Delivered To: Family Member Relationship to Patient: Spouse Orthodontic Laboratory Technician Name: Roxana Marquez Delivery Method: HAND - Hand Delivered Denise Days: Prior Verbal Notification: Recipient Understood Notice: Yes Recipient Signature: Yes Med Rec Note Co-signed by Attending: Coverage Notice Comment: Reviewer: [id number] Miguel Sharma Notice Issued Date-Time: 04/10/2019 10:00 Notice Type: Patient Choice Letter Notice Delivered To: Family Member Relationship to Patient: Spouse Orthodontic Laboratory Technician Name: Roxana Marquez Delivery Method: HAND - Hand Delivered Denise Days: Prior Verbal Notification: Recipient Understood Notice: Yes Recipient Signature: Yes Med Rec Note Co-signed by Attending: Coverage Notice Comment: IRAM for Home Health Last DP export: 04/11/19 7:12 pm Patient Name: EVI MARQUEZ Page [phone] at 1156 All edits/amendments must be made on the electronic document DICTATION DATE: 04/12/19 115 CLOTH PRINTER: PAULINA 04/12/19 1156 RPT#: [id number] DC DATE: STATUS: ADM IN [facility] [address] [place] [address] END OF REPORT
--- NOTE | 2019-04-12 12:04 | MORECARE ---
CASE MANAGEMENT DISCHARGE SUMMARY PATIENT: EVI MARQUEZSHAM UNIT: [id number] ADM DATE: 04/05/19 AGE: 83 : 35 SEX: M [facility] AUTHOR: TENISHA DONOHUE PHYSICIAN: REFERRING PHYSICIAN: JESSICA PRUITT DO DATE OF SERVICE: 04/12/19 Discharge Plan Patient Name: EVI MARQUEZ Facility: [facility]:[place] : 1935 Planned Disposition: Home with Home Health Anticipated Discharge Date: Discharge Date: Expected LOS: Initial Reviewer: [email or web address] Initial Review Date: 04/05/2019 Generated: 04/12/19 1:03 pm Comments DCP- Discharge Planning Updated by [id number]: Crystal Sharma on 04/12/19 10:[address] Patient Name: EVI MARQUEZ Encounter No: [id number] : 1935 Primary Insurance: MEDICARE A & B Anticipated DC Date: Planned Disposition: Home with Home Health External Planned Provider: : [facility] [phone] will see patient tomorrow 04/13/19 DCP follow-up note: Patient and family in agreement with discharge plan. No changes to plan. Case management will follow and assist as needed. Crystal Sharma DCP- Discharge Planning Updated by [email or web address]: Crystal Sharma on 04/11/19 7:[address] Patient is requesting Home Health upon discharge. IRAM signed for #1 [place] #2 Jessica. CM called [place] and faxed records. CM stated uncertain of discharge date could be as early as tomorrow. CM will continue to follow and assist as needed with discharge planning / needs. 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 Patient lives at home with his Roxana and plans to return there upon discharge. Patient feels this would be a safe discharge. CM discussed availability / needs of home health and medical equipment. is requesting Home Health. CM gave Home Health IRAM and information to choose HH agency. Patient states he will have his drive him home upon discharge. D/C IMM explained and signed @ 1000 CM will continue to follow and assist as needed with discharge planning /needs Property Utilization Manager: Crystal Sharma DCSHILPIA - Discharge Planning Initial Assessment Updated by [email or web address]: Crystal Sharma on 04/10/19 11:53 am * Is the patient Alert and Oriented? Yes * How many steps to enter\exit or inside your home? * PCP SONAL * Pharmacy [facility] * Preadmission Environment Home with Family * ADLs Independent * Other Equipment LIQUID 02 AND TRILOGY * List name and contact numbers for known caregivers / representatives who currently or will assist patient after discharge: ROXANA MARQUEZ - SPOUSE - [phone] * Verbal permission to speak to the caregivers and representatives has been obtained from the patient. Yes * Community resources currently utilized None * Additional services required to return to the preadmission environment? No * Can the patient safely return to the preadmission environment? Yes * Has this patient been hospitalized within the prior 30 days at any hospital? No External Providers External Provider: OTHER-OTHER Next Contact Date: Service Request Date: Service Type: Resolution: Reviewer: Comments: Coverage Notice Reviewer: [id number] Miguel Sharma Notice Issued Date-Time: 04/10/2019 10:00 Notice Type: IM Discharge Notice Notice Delivered To: Family Member Relationship to Patient: Spouse Mechanism Assembler Name: Roxana Marquez Delivery Method: HAND - Hand Delivered Denise Days: Prior Verbal Notification: Recipient Understood Notice: Yes Recipient Signature: Yes Med Rec Note Co-signed by Attending: Coverage Notice Comment: Reviewer: [id number] Miguel Sharma Notice Issued Date-Time: 04/10/2019 10:00 Notice Type: Patient Choice Letter Notice Delivered To: Family Member Relationship to Patient: Spouse Mechanism Assembler Name: Roxana Marquez Delivery Method: HAND - Hand Delivered Denise Days: Prior Verbal Notification: Recipient Understood Notice: Yes Recipient Signature: Yes Med Rec Note Co-signed by Attending: Coverage Notice Comment: IRAM for Home Health Last DP export: 04/12/19 10:56 am Patient Name: EVI MARQUEZ Page [id number] at 1204 All edits/amendments must be made on the electronic document DICTATION DATE: 04/12/191202 ALUMINUM BOAT INSPECTOR: PAULINA 04/12/191202 RPT#: [id number] DC DATE: STATUS: ADM IN [facility] [address] [place] [address] END OF REPORT
--- NOTE | 2019-04-12 16:51 | MORECARE ---
CASE MANAGEMENT DISCHARGE SUMMARY PATIENT: EVI MARQUEZSHAM UNIT: [id number] ADM DATE: 04/05/19 AGE: 83 : 35 SEX: M [facility] AUTHOR: TENISHA DONOHUE PHYSICIAN: REFERRING PHYSICIAN: JESSICA PRUITT DO DATE OF SERVICE: 04/12/19 Discharge Plan Patient Name: EVI MARQUEZ Facility: [facility]:[place] : 1935 Planned Disposition: Home with Home Health Anticipated Discharge Date: Discharge Date: 04/12/2019 Expected LOS: Initial Reviewer: [email or web address] Initial Review Date: 04/05/2019 Generated: 04/12/19 5:50 pm Comments DCP- Discharge Planning Updated by [email or web address]: Crystal Sharma on 04/12/19 10:[address] Patient Name: EVI MARQUEZ Encounter No: [id number] : 1935 Primary Insurance: MEDICARE A & B Anticipated DC Date: Planned Disposition: Home with Home Health External Planned Provider: : [facility] [phone] will see patient tomorrow 04/13/19 DCP follow-up note: Patient and family in agreement with discharge plan. No changes to plan. Case management will follow and assist as needed. Crystal Sharma DCP- Discharge Planning Updated by [email or web address]: Crystal Sharma on 04/11/19 7:[address] Patient is requesting Home Health upon discharge. IRAM signed for #1 [place] #2 [place]. CM called [place] and faxed records. CM stated uncertain of discharge date could be as early as tomorrow. CM will continue to follow and assist as needed with discharge planning / needs. 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 Patient lives at home with his Roxana and plans to return there upon discharge. Patient feels this would be a safe discharge. CM discussed availability / needs of home health and medical equipment. is requesting Home Health. CM gave Home Health IRAM and information to choose HH agency. Patient states he will have his drive him home upon discharge. D/C IMM explained and signed @ 1000 CM will continue to follow and assist as needed with discharge planning /needs Slate Cutter Operator: Crystal Sharma DCPIA - Discharge Planning Initial Assessment Updated by [email or web address]: Crystal Sharma on 04/10/19 11:53 am * Is the patient Alert and Oriented? Yes * How many steps to enter\exit or inside your home? * PCP FARO * Pharmacy [facility] * Preadmission Environment Home with Family * ADLs Independent * Other Equipment LIQUID 02 AND TRILOGY * List name and contact numbers for known caregivers / representatives who currently or will assist patient after discharge: ROXANA MARQUEZ - SPOUSE - [phone] * Verbal permission to speak to the caregivers and representatives has been obtained from the patient. Yes * Community resources currently utilized None * Additional services required to return to the preadmission environment? No * Can the patient safely return to the preadmission environment? Yes * Has this patient been hospitalized within the prior 30 days at any hospital? No Coverage Notice Reviewer: [email or web address] Miguel Sharma Notice Issued Date-Time: 04/10/2019 10:00 Notice Type: IM Discharge Notice Notice Delivered To: Family Member Relationship to Patient: Spouse Collection Analyst Name: Roxana Marquez Delivery Method: HAND - Hand Delivered Denise Days: Prior Verbal Notification: Recipient Understood Notice: Yes Recipient Signature: Yes Med Rec Note Co-signed by Attending: Coverage Notice Comment: Reviewer: [id number] Miguel Sharma Notice Issued Date-Time: 04/10/2019 10:00 Notice Type: Patient Choice Letter Notice Delivered To: Family Member Relationship to Patient: Spouse Collection Analyst Name: Roxana Marquez Delivery Method: HAND - Hand Delivered Denise Days: Prior Verbal Notification: Recipient Understood Notice: Yes Recipient Signature: Yes Med Rec Note Co-signed by Attending: Coverage Notice Comment: IRAM for Home Health Last DP export: 04/12/19 11:04 am Patient Name: EVI MARQUEZ Page [phone] at 1651 All edits/amendments must be made on the electronic document DICTATION DATE: 04/12/191649 APPLICATIONS ARCHITECT: PAULINA 04/12/191649 RPT#: [id number] DC DATE:04/12/19 STATUS: DIS IN [facility] [address] [place] [address] END OF REPORT
--- NOTE | 2019-04-16 09:52 | EC ---
PATIENT:EVI VINSON DATE OF SERVICE: 04/05/19 SEX: M MEDICAL RECORD: [id number] DATE OF : 35 LOCATION:[place] [address] AGE OF PATIENT: 83 ADMISSION DATE: 04/05/19 REFERRING PHYSICIAN: INTERPRETING PHYSICIAN: NELLI FRANCISCO MD ECHOCARDIOGRAM REPORT ECHO CHARGES 4 ECHO COMPLETE Date: 04/08/19 CLINICAL DIAGNOSIS: CHF ECHOCARDIOGRAPHIC MEASUREMENTS (adult normal given) AC root (d.<3.7cm) 3.6 cm LV Septum d (<1.2 cm> 1.2 cm Valve Excursion 1.7 cm LV Septum (systole) 1.6 cm Left Atria (s.<4.0cm> 4.3 cm LVPW d(<1.2cm) 1.3 cm RV (d.<2.3cm) 5.0 cm LVPW (sytole) 1.9 cm LV diastole(<5.6CM) 5.6 cm MV E-F(>70mm/sec) cm LV systole 3.1 cm LVOT Diameter 1.9 cm MV exc.(>10mm) 1.5 cm Est.ejection fraction (50-75%) % DOPPLER: LVIT cm/sec A 72.0 cm/sec E 81.0 cm/sec LA cm/sec RVSP 69 mmHg LVOT 102 cm/sec AOP1/2T m/s Asc. Ao 133 cm/sec RVOT 99 cm/sec RA cm/sec PA 142 cm/sec AV Gradient Peak 7.02 mmHg AV Mean 3.97 mmHg AV Area 2.4 cm MV Gradient Peak 4.18 mmHg MV Mean 2.27 mmHg MV Area cm COMMENTS: Bench Assembler Operator: 2 MICHELLE STANLEY Tip Cutter: 1 Dr. Francisco TAPE# PACS Pericardial Effusion N DATE OF SERVICE: FINDINGS: 1. Left ventricular chamber size is within normal limits. Left ventricular systolic function is normal. Overall ejection fraction is estimated at 55% to 60%. 2. Left atrium is enlarged at 4.3 cm. Right atrium and right ventricular chamber sizes are as well mildly dilated. 3. Valvular structures have normal structure and motion. 4. Doppler interrogation reveals mild mitral regurgitation and ears-[id number] ECHOCARDIOGRAM REPORT [id number] EVI VINSON tricuspid regurgitation. No other valvular insufficiency or stenosis. Pulmonary systolic pressure is significantly elevated, estimated at 69 mmHg. 5. No evidence of pericardial effusion or left ventricular thrombus. TRANSINT:[id number] Voice Confirmation ID: [id number] DOCUMENT ID: [id number] NELLI FRANCISCO MD at 0952 CC: [id number] DICTATION DATE: 04/08/19 1602 OPTOMETRY TEACHER: 04/08/19 1759 DIS IN 04/12/19 [facility] [address] [place] [id number]
== END 2019-04-12 13:24 | disposition home health service (06) | DRG 166 ==
LOC: D.M2 09:01 → D.CVICU 09:02 → D.M2 09:02 → D.CVICU 04-09 13:24
PROVIDERS: Emergency Medicine; Internal Medicine Nephrology; Thoracic Surgery (Cardiothoracic Vascular Surgery); ADMIT Family Medicine; ATTEND Family Medicine
PROC: 04V03D6 (ICD-10-PCS; 2019-04-09)
PROC: [UNRECOGNIZED PROCEDURE] (principal; 2019-04-09 10:30)
DX: J96.22 Acute and chronic respiratory failure with hypercapnia (principal); I50.43 Acute on chronic combined systolic (congestive) and diastolic (congestive) heart failure; J18.9 Pneumonia, unspecified organism; N17.9 Acute kidney failure, unspecified; J96.21 Acute and chronic respiratory failure with hypoxia; E86.0 Dehydration; J84.10 Pulmonary fibrosis, unspecified; G47.33 Obstructive sleep apnea (adult) (pediatric); I27.20 Pulmonary hypertension, unspecified; D64.9 Anemia, unspecified; I25.10 Atherosclerotic heart disease of native coronary artery without angina pectoris; N40.0 Benign prostatic hyperplasia without lower urinary tract symptoms; J43.9 Emphysema, unspecified; I71.4 Abdominal aortic aneurysm, without rupture; I11.0 Hypertensive heart disease with heart failure; I08.1 Rheumatic disorders of both mitral and tricuspid valves; R59.1 Generalized enlarged lymph nodes

== ENCOUNTER → 2019-10-10 10:17 | Outpatient (CLI) | payer MEDICARE, OTHER ==
[2019-04-07 10:11] VITALS: BMI 31.9
== END | disposition home or self-care (01) ==
LOC: D.CT 10:17
PROVIDERS: ATTEND Thoracic Surgery (Cardiothoracic Vascular Surgery)
DX: I25.10 Atherosclerotic heart disease of native coronary artery without angina pectoris (principal)

== ENCOUNTER → 2019-11-08 10:22 | Outpatient (CLI) | payer MEDICARE, OTHER ==
[2019-10-16 11:20] VITALS: BMI 33.5
[~2019-11-08 10:22] MED LIST changes: +ASPIRIN EC81 M1 PO; +GALZIN50 MG PO; +OXYGEN; +TESSALON PERLE100 MG PO; +VITAMIN B-1250 MCG PO; +VITAMIN D10000 UNI1 PO
== END | disposition home or self-care (01) ==
LOC: D.RAD 10:22
PROVIDERS: ATTEND Internal Medicine Cardiovascular Disease
DX: R06.09 Other forms of dyspnea (principal)

== ENCOUNTER → 2020-02-11 14:47 | Outpatient (CLI) | payer MEDICARE, OTHER ==
[2019-10-16 11:20] VITALS: BMI 33.5
== END | disposition home or self-care (01) ==
LOC: D.CT 14:47
PROVIDERS: ATTEND Thoracic Surgery (Cardiothoracic Vascular Surgery)
DX: I65.23 Occlusion and stenosis of bilateral carotid arteries (principal)

== ENCOUNTER 2020-02-19 11:32 | Inpatient (IN) | payer MEDICARE, OTHER ==
[~2020-02-19] VITALS: Ht 172.7 cm; Wt 96.2 kg
[2020-02-19 12:43] VITALS: BP 115/62
--- NOTE | 2020-02-19 12:43 | NUR ---
PT TO ROOM FROM ADMISSIONS. CARRYING PORTABLE OXYGEN. PULSE OX ON ARRIVAL 69%. PLACED ON WALL OXYGEN AT 5 LITERS AND PULSE OX UP TO 95%. PT NOT IN ANY DISTRESS HOWEVER. DRESSING TO RIGHT NECK PULLED BACK TO SEE INCISION THAT IS NOT HEALING FROM OCTOBER SURGERY.
--- NOTE | 2020-02-19 14:22 | NUR ---
PT'S BRINGING MEDICATION FROM HOME FOR DOSAGE AND FREQUENCY. WILL UPDATE HOME MED REC WHEN HERE.
[2020-02-19 14:43] LABS: BASOPHILS 0.4 % (0-2); EOSINOPHILS 9.8 % (0-7); HEMATOCRIT 36.4 % (42.0-54.0); HEMOGLOBIN 11.2 g/dL (13.5-17.5); IMMATURE GRANULOCYTES 0.4 % (0-5); LYMPHOCYTES 15.2 % (15-50); MCHC 30.8 g/dL (31.0-37.0); MCV 97.6 fL (80.0-100.0); MONOCYTES 7.3 % (2-11); NEUTROPHILS 66.9 % (40-80); PLATELET COUNT 207 10x3/uL (130-400); RBC 3.73 10x6/uL (4.20-6.10); RDW 13.1 % (11.5-14.5); WBC 5.6 10x3/uL (4.8-10.8)
[2020-02-19 14:44] LABS: ANION GAP 9.8 mmol/L (8-16); CALCIUM 8.6 mg/dL (8.5-10.1); CARBON DIOXIDE 29.7 mmol/L (21.0-32.0); CREATININE - SERUM 1.7 mg/dL (0.6-1.3); POTASSIUM - SERUM 5.5 mmol/L (3.5-5.1)
[2020-02-19] MEDS ORDERED: LOKELMA5 GM PO (15:32)
[2020-02-19 16:20] VITALS: BP 118/52
[2020-02-19 16:20] LABS: APTT 30.5 SECONDS (22.8-39.4); INR 1.11 (0.85-1.17); PROTIME 14.3 SECONDS (11.6-15.0)
[2020-02-19 17:59] LABS: ALBUMIN 3.3 g/dL (3.4-5.0); BILIRUBIN - TOTAL 0.35 mg/dL (0.2-1.3); PROTEIN - SERUM 6.7 g/dL (6.4-8.2)
[2020-02-19 18:25] VITALS: BP 115/62; BMI 32.4
[2020-02-19 19:44] LABS: BILIRUBIN NEGATIVE (NEGATIVE); GLUCOSE NEGATIVE (NEGATIVE); KETONE NEGATIVE (NEGATIVE); NITRITE NEGATIVE (NEGATIVE); UROBILINOGEN NORMAL (NORMAL)
[2020-02-19 20:00] VITALS: BP 121/61
[2020-02-20] VITALS (12 sets, daily range): BP systolic 104–141; BP diastolic 46–58; Ht 172.7 cm; Wt 96.2 kg
--- NOTE | 2020-02-20 07:55 | NUR ---
REPORT RECIEVED. PT SITTING SEMI FOWLERS IN BED. RR EVEN AND UNLABORED ON RA. PT HAS A L FA PIV THAT IS SL. HE IS NPO AT THIS TIME FOR A PROCEDURE WITH . BED LOCKED AND IN LOWEST POSITION, CALL LIGHT WITHIN REACH. WILL CTM
--- NOTE | 2020-02-20 14:30 | NUR ---
PT TAKEN TO SURGERY AT THIS TIME.
--- NOTE | 2020-02-20 16:45 | NUR ---
PT ARRIVED TO UNIT AROUND 1631. CONNECTED TO MOBILE WEB APPLICATION DEVELOPER. HR IN 50S. RIGHT NECK DRESSING IN PLACE. PLACED ON 10L O2 VIA NON-REBREATHER. HAS L-SUB CVL WITH PLASMOLYTE AT 30ML/HR AND TINO AT 0.3MCG/KG/MIN. L-RADIAL RENE IN PLACE. FLOR CATHETER IN PLACE. AROUSES TO VOICE. WILL CONTINUE TO MONITOR. CLOSELY.
--- NOTE | 2020-02-20 19:15 | NUR ---
PT A/OX4, O2 @ 5L VIA HFNC, FINE CRACKLES NOTED BILAT, DRESSING INTACT TO RIGHT NECK, LEFT TLSC INTACT WITH PLASMALYTE @ 30 CC/HR, LEFT WRIST A-LINE INTACT, FLOR PATENT TO BSD, VITALS STABLE
--- NOTE | 2020-02-20 21:00 | NUR ---
PT AWAKE, TAKES PO MEDS WITHOUT DIFFICULTY, NO C/O @ THIS TIME, WILL CONT TO MONITOR
[2020-02-21] VITALS (13 sets, daily range): BP systolic 105–147; BP diastolic 48–68
[2020-02-21 05:19] LABS: BASOPHILS 0.3 % (0-2); EOSINOPHILS 6.7 % (0-7); HEMATOCRIT 34.2 % (42.0-54.0); HEMOGLOBIN 10.4 g/dL (13.5-17.5); IMMATURE GRANULOCYTES 0.3 % (0-5); LYMPHOCYTES 15.1 % (15-50); MCH 29.8 pg (26.0-34.0); MCHC 30.4 g/dL (31.0-37.0); MEAN PLATELET VOLUME 8.9 fL (7.4-10.4); MONOCYTES 6.6 % (2-11); PLATELET COUNT 200 10x3/uL (130-400); RBC 3.49 10x6/uL (4.20-6.10); RDW 13.3 % (11.5-14.5)
[2020-02-21 05:21] LABS: WBC 7.2 10x3/uL (4.8-10.8)
[2020-02-21 05:41] LABS: ALBUMIN 2.7 g/dL (3.4-5.0); ANION GAP 6.1 mmol/L (8-16); BILIRUBIN - TOTAL 0.4 mg/dL (0.2-1.3); CALCIUM 7.7 mg/dL (8.5-10.1); CARBON DIOXIDE 31.6 mmol/L (21.0-32.0); CREATININE - SERUM 1.9 mg/dL (0.6-1.3); POTASSIUM - SERUM 4.7 mmol/L (3.5-5.1); PROTEIN - SERUM 6.3 g/dL (6.4-8.2)
--- NOTE | 2020-02-21 09:37 | NUR ---
Nutrition follow-up: Diet: Regular PO intake 100% of last 2 meals Labs reviewed pt s/p wound debridement Wt: 212# PO intake is good at this time. RDN following.
--- NOTE | 2020-02-21 10:55 | NUR ---
0715-RECIEVED AWAKE AND ALERT-R NECK DRG SOFT TO TOUCH-GOOD A/E THRU TRACHEA-MIRZA X4
--- NOTE | 2020-02-21 12:20 | OP ---
PATIENT NAME: EVI VINSON MEDICAL RECORD: [id number] :35 LOCATION:D.[facility]I D.CV01 ADMISSION DATE:02/19/20 SURGEON: SIDRA AGUILAR MD DATE OF OPERATION: 02/20/2020 SURGEON: Sidra Aguilar MD PROCEDURE PERFORMED: Debride right neck wound and closure. PREOPERATIVE DIAGNOSIS: Neck wound dehiscence and wound infection. POSTOPERATIVE DIAGNOSIS: Neck wound dehiscence and wound infection. ANESTHESIA: General endotracheal anesthesia. ESTIMATED BLOOD LOSS: 10 cc. SPECIMENS: Cultures taken and debrided skin edges for pathology. COMPLICATIONS: None. CONDITION: Stable. DISPOSITION: CV ICU. OPERATIVE FINDINGS: Cultures were taken from the wound, which had a slightly bloody slimy appearance, particularly from the upper mid portion of the wound. When the wound was opened and debrided the skin edges about 3 mm back, there was no discrete tract extending below the subcutaneous tissue and this is consistent with that seen on the previous CTA. Neck wound was closed primarily after Pulsavac. INDICATION: Wound dehiscence and infection many months after carotid endarterectomy. DESCRIPTION OF PROCEDURE: The patient was brought to the operating suite. General anesthesia was obtained. The neck was prepped and draped. The neck incision was debrided and the skin edges excised. Hemostasis was ensured. A few small clips on small subcutaneous veins. Pulsavac was performed. The wound was carefully inspected. The wound was then closed with interrupted nylons of 3 different sizes with good approximation of the skin. A pressure dressing was applied and the patient was taken to the CV ICU. It is possible the patient will have to return for further neck debridement and/or Pulsavac with possible wound VAC closure. TRANSINT:[id number] Voice Confirmation ID: [id number] DOCUMENT ID: [id number] OPERATIVE REPORT [id number] EVI VINSONSHAM SIDRA AGUILAR MD at 1220 CC: [id number] DICTATION DATE: 02/20/20 1614 RUSTIC TERRAZZO SETTER: 02/20/20 1635 ADM IN [place] [id number] [place] [address]
[2020-02-21] MEDS ORDERED: Triple Antibiotic Oi TOPICAL (13:14)
[2020-02-21] MEDS ORDERED: LEVAQUIN750 MG PO (13:25)
--- NOTE | 2020-02-21 18:54 | NUR ---
0830- AT BEDSIDE -ASSISTING PT WITH BREAKFEST TRAY-R NECK DRG DRY AND INTACT-L RADIAL RENE IN PLACE-SR ON MONITOR 0930-NO CHANGES AT THIS TIME-REMAINS ON STRICT BEDREST ORDERED-FLOR CATH IN PLACE- 1130-DR NUGENT AT BEDSIDE-R NECK DRG REMOVED-NOTED SMALL SEROUS-DRAINAGE AT TOP OF INCISION-SMALL SEROUS DRAINAGE AT BOTTOM-SUTURES REMAIN INTACT- 1230-L RADIAL RENE D/C'D ORDERED-FLOR CATH D/C'D ORDERED- 1315-PT VOIDED 100ML-REMOVED SCD'S-AND SALINE LOCKED IV-L CVL SITE-ENCOURAGED TO AMBULATE WITHIN ROOM 1345-C CHAR RN CVS-SPOKE WITH ON TELEPHONE AND SPECFICALLY STATED ANTIBIOTIC SCHEDULE-FOLLOW UP APPT-AND SIGNS TO CALL DR NUGENT OFFICE-RETURN INFO: WILL BE THERE AT 5:30 TO PICK HIM UP 1500-AMBULATING EASILY IN RM-SR ON MONITOR 1630-ASSISTED WITH DINNER TRAY 1700- ON TELEPHONE STATING WILL BE THERE IN 15MIN 1715- ARRIVED AT FRONT ENTRANCE-DID NOT BRING PT HOME O2 FOR TRANSPORT-NOTED 5L HIGH FLOW -INFORMED SAME CANNOT SEND HOSPITAL O2-NO [employer] WILL SUPPORT THAT VOLUME ON DISTANCE- AGREED TO RETURN WITH PT HOME O2 1815- AT ER DOOR STATED TO MEET DOWN THERE--O2 PRESENT IN CAR-TRANSFERED O2 TO HOME TANK
--- NOTE | 2020-02-21 22:14 | MORECARE ---
CASE MANAGEMENT DISCHARGE SUMMARY PATIENT: EVI VINSONSHAM UNIT: [id number] ADM DATE: 02/19/20 AGE: 84 : 35 SEX: M ROOM/BED: [facility] AUTHOR: TENISHA DONOHUE PHYSICIAN: REFERRING PHYSICIAN: SIDRA NUGENT MD DATE OF SERVICE: 02/21/20 Discharge Plan Patient Name: EVI VINSON Facility: [facility]:[place] : 1935 Planned Disposition: Home Health Service Anticipated Discharge Date: Discharge Date: 02/21/2020 Expected LOS: Initial Reviewer: [email or web address] Initial Review Date: 02/19/2020 Generated: 02/21/20 11:14 pm DCPIA - Discharge Planning Initial Assessment Updated by [email or web address]: Crystal Sharma on 02/21/20 10:13 pm * Is the patient Alert and Oriented? Yes * How many steps to enter\exit or inside your home? Patient Name: EVI VINSON Page [id number] at 2214 All edits/amendments must be made on the electronic document DICTATION DATE: 02/21/202213 CATTLE MANAGER: PAULINA 02/21/202213 RPT#: [id number] DC DATE:02/21/20 STATUS: DIS IN [facility] [address] [place] [address] END OF REPORT
--- NOTE | 2020-02-21 22:21 | MORECARE ---
CASE MANAGEMENT DISCHARGE SUMMARY PATIENT: EVI VINSON [place] UNIT: [id number] ADM DATE: 02/19/20 AGE: 84 : 35 SEX: M ROOM/BED: D.[facility] AUTHOR: TENISHA DONOHUE PHYSICIAN: REFERRING PHYSICIAN: SIDRA NUGENT MD DATE OF SERVICE: 02/21/20 Discharge Plan Patient Name: EVI VINSON Facility: [facility]:[place] : 1935 Planned Disposition: Home Health Service Anticipated Discharge Date: Discharge Date: 02/21/2020 Expected LOS: Initial Reviewer: [email or web address] Initial Review Date: 02/19/2020 Generated: 02/21/20 11:21 pm Comments DCP- Discharge Planning Updated by [email or web address]: Crystal Sharma on 02/21/20 9:[address] Patient Name: EVI VINSON Admission Status: Elective Accout number: [id number] Admission Date: 02-19-2020 : 1935 Admission Diagnosis:INFCT FOL A PROC, SUPERFIC INCISIONAL SURGICAL SITE, IN Attending: SIDRA NUGENT Current LOS: 2 Anticipated DC Date: Planned Disposition: Home Health Service Primary Insurance: MEDICARE A & B Discharge Planning Comments: CM met with patient to complete initial dc planning assessment. CM educated patient on the CM role and verbal consent given by patient to complete assessment. Patient lives at home with family. Patient is independent. At discharge patient plans to return home and feels this is a safe discharge. CM discussed availability of home health, rehab services, and medical equipment. Patient will have family to transport home. Patient states he has [facility]. Patient denied known discharge needs at this time. Patient is eager to leave to go home. CM will continue to follow and will assist as needed with dc plans/needs. Physician Assistant Primary Care: Crystal Sharma DCPIA - Discharge Planning Initial Assessment Updated by [email or web address]: Crystal Sharma on 02/21/20 10:13 pm * Is the patient Alert and Oriented? Yes * How many steps to enter\exit or inside your home? Last DP export: 02/21/20 9:14 p Patient Name: EVI VINSON Page [phone] at 2221 All edits/amendments must be made on the electronic document DICTATION DATE: 02/21/202220 HOSPICE NURSE PRACTITIONER: PAULINA 02/21/202220 RPT#: [id number] DC DATE:02/21/20 STATUS: DIS IN [facility] [address] [place] [address] END OF REPORT
== END 2020-02-21 18:30 | disposition home health service (06) | DRG 862 ==
LOC: D.M2 11:32 → D.CVICU 11:49
PROVIDERS: ADMIT Thoracic Surgery (Cardiothoracic Vascular Surgery); ATTEND Thoracic Surgery (Cardiothoracic Vascular Surgery)
PROC: 0HB4XZZ Excision of Neck Skin, External Approach (ICD-10-PCS; principal; 2020-02-20 14:30)
DX: T81.41XA Infection following a procedure, superficial incisional surgical site, initial encounter (principal); J96.22 Acute and chronic respiratory failure with hypercapnia; J96.21 Acute and chronic respiratory failure with hypoxia; J44.9 Chronic obstructive pulmonary disease, unspecified; I65.29 Occlusion and stenosis of unspecified carotid artery; R53.81 Other malaise; E87.5 Hyperkalemia; K43.9 Ventral hernia without obstruction or gangrene; N40.0 Benign prostatic hyperplasia without lower urinary tract symptoms; G47.33 Obstructive sleep apnea (adult) (pediatric); J84.10 Pulmonary fibrosis, unspecified; J45.909 Unspecified asthma, uncomplicated; I27.20 Pulmonary hypertension, unspecified; R05 Cough; D64.9 Anemia, unspecified; N18.9 Chronic kidney disease, unspecified

== ENCOUNTER → 2020-03-30 12:38 | Outpatient (CLI) | payer MEDICARE, OTHER ==
[2020-02-20 11:00] VITALS: BMI 32.3
[~2020-03-30 12:38] MED LIST changes: +LOKELMA5 GM PO; +Triple Antibiotic Oi TOPICAL
== END | disposition home or self-care (01) ==
LOC: D.CT 12:38
PROVIDERS: ATTEND Thoracic Surgery (Cardiothoracic Vascular Surgery)
DX: I71.4 Abdominal aortic aneurysm, without rupture (principal); I65.23 Occlusion and stenosis of bilateral carotid arteries

== ENCOUNTER → 2020-04-22 15:00 | Outpatient (CLI) | payer MEDICARE, OTHER ==
[2020-02-20 11:00] VITALS: BMI 32.3
== END | disposition home or self-care (01) ==
LOC: D.LABREF 15:00
PROVIDERS: ATTEND Thoracic Surgery (Cardiothoracic Vascular Surgery)
DX: T81.89XA Other complications of procedures, not elsewhere classified, initial encounter (principal)

== ENCOUNTER → 2020-05-21 10:44 | Outpatient (CLI) | payer MEDICARE, OTHER ==
[2020-02-20 11:00] VITALS: BMI 32.3
== END | disposition home or self-care (01) ==
LOC: D.CT 10:44
PROVIDERS: ATTEND Thoracic Surgery (Cardiothoracic Vascular Surgery)
DX: I65.01 Occlusion and stenosis of right vertebral artery (principal)

== ENCOUNTER 2020-06-22 09:30 | Day surgery (SDC) | payer MEDICARE, OTHER ==
[2020-06-18 14:58] LABS: BASOPHILS 0.4 % (0-2); EOSINOPHILS 7.1 % (0-7); HEMATOCRIT 38.1 % (42.0-54.0); HEMOGLOBIN 12.1 g/dL (13.5-17.5); IMMATURE GRANULOCYTES 0.2 % (0-5); LYMPHOCYTES 13.1 % (15-50); MCH 30.7 pg (26.0-34.0); MCHC 31.8 g/dL (31.0-37.0); MCV 96.7 fL (80.0-100.0); MEAN PLATELET VOLUME 9.6 fL (7.4-10.4); MONOCYTES 9.2 % (2-11); PLATELET COUNT 160 10x3/uL (130-400); RBC 3.94 10x6/uL (4.20-6.10); RDW 14.3 % (11.5-14.5); WBC 5.6 10x3/uL (4.8-10.8)
[2020-06-18 15:23] LABS: CALCIUM 8.5 mg/dL (8.5-10.1); CARBON DIOXIDE 29.7 mmol/L (21.0-32.0); CREATININE - SERUM 1.9 mg/dL (0.6-1.3); POTASSIUM - SERUM 4.7 mmol/L (3.5-5.1)
[~2020-06-22] VITALS: Ht 172.7 cm; Wt 91.6 kg
[2020-06-22 10:53] VITALS: BP 124/61; Ht 172.7 cm; Wt 91.6 kg
--- NOTE | 2020-06-22 12:08 | NUR ---
1130-DR JOVANNA HIGGINBOTHAM'S NURSE, HERE TO INFORM PATIENT THAT SURGERY IS CANCELED FOR TODAY DUE TO EMERGENT SURGERY. WELDER/FITTER NOTIFIED. 1200-R NECK WOUND REDRESSED AND PATIENT PREPARED FOR DISCHARGE. 1215-ESCORTED TO MAIN ENTRANCE VIA WHEELCHAIR.
== END 2020-06-22 12:16 | disposition home or self-care (01) ==
LOC: D.OPS 09:30
PROVIDERS: Anesthesiology; ATTEND Thoracic Surgery (Cardiothoracic Vascular Surgery)
DX: T81.89XA Other complications of procedures, not elsewhere classified, initial encounter (principal); Z53.9 Procedure and treatment not carried out, unspecified reason